=== PATIENT | male | born 1965 | race African-American/Black ===

== ENCOUNTER 2023-12-05 17:13 | Emergency (ER) | payer OTHER ==
[2023-12-05] MEDS ORDERED: Proparacaine 0.5% Opth 15 ML BOT ONE (18:23)
[2023-12-05] MEDS ORDERED: Fluorescein Opthalmic Strip ONE (18:23)
[2023-12-05] MEDS ORDERED: Acetaminophen 500 MG TAB ONE (18:50)
[2023-12-05] MEDS ORDERED: Boostrix 0.5 ML (Tdap) VIAL (>/=7 yrs of age) ONE (18:52)
== END 2023-12-05 19:05 | disposition home or self-care (01) ==
LOC: ERS 17:13 → EEVIPCON 17:13 → ERS 19:05
DX: S09.90XA Unspecified injury of head, initial encounter (principal); I10 Essential (primary) hypertension; F17.210 Nicotine dependence, cigarettes, uncomplicated; Y04.0XXA Assault by unarmed brawl or fight, initial encounter
CPT/HCPCS: 70450; 70486; 90471; 90715